=== PATIENT | male | born 1980 | race Caucasian/White ===

== ENCOUNTER 2018-05-30 01:49 | Emergency (ER) | payer BC ==
[~2018-05-30] VITALS: Ht 167.6 cm; Wt 81.6 kg
[2018-05-30 02:04] VITALS: BP_SYST 148
--- NOTE | 2018-05-30 02:10 | NUR ---
Pt placed to ER waiting room in stable condition. Pt c/o generalized abdominal pain with 2 episodes of vomiting since yesterday afternoon. Pt states that it could be because he hasn't used the bathroom today. Reports LBM yesterday and regular. No active vomiting noted at this time. Urine specimen cup provided.
--- NOTE | 2018-05-30 02:42 | NUR ---
Patient to ER bed 6 for evaluation.
--- NOTE | 2018-05-30 02:42 | NUR ---
ER Dr. Torres at bedside examining patient.
[2018-05-30 03:04] LABS: HEMATOCRIT 49.1 % (36-54); HEMOGLOBIN 16.5 g/dL (14.0-18.0); RED BLOOD CELL COUNT(AUTO) 5.59 MIL/uL (4.2-6.2); WHITE BLOOD COUNT (AUTO) 9.4 K/uL (4.8-10.8)
[2018-05-30 03:05] LABS: BASOPHILS % (AUTO) 0.2 % (0.0-2.0); EOSINOPHILS % (AUTO) 0.2 % (0.0-4.0); LYMPHOCYTES # (AUTO) 1.3 K/uL (1.0-5.5); LYMPHOCYTES % (AUTO) 13.6 % (20.5-51.5); MEAN CORPUSCULAR HEMOGLOBIN 30 pg (27-31); MEAN CORPUSCULAR HGB CONC 34 % (32-36); MEAN CORPUSCULAR VOLUME 88 fL (79.0-98.0); MONOCYTES # (AUTO) 0.4 K/uL (0.0-1.0); MONOCYTES % (AUTO) 4.3 % (1.7-9.3); NEUTROPHILS # (AUTO) 7.8 K/uL (1.8-7.7); NEUTROPHILS % (AUTO) 81.7 % (40.0-70.0); PLATELET COUNT (AUTO) 253 K/uL (130-430); RED CELL DISTRIBUTION WIDTH 11.5 % (9.0-15.0)
[2018-05-30 03:11] LABS: BILIRUBIN,URINE NEGATIVE (NEGATIVE); CLARITY/URINE CLEAR (CLEAR); COLOR,URINE YELLOW (YELLOW); GLUCOSE,URINE NEGATIVE (NEGATIVE); KETONES,URINE TRACE (NEGATIVE); PROTEIN URINE TRACE (NEGATIVE)
[2018-05-30 03:12] LABS: BLOOD, URINE NEGATIVE (NEGATIVE); LEUKOCYTE ESTERASE ,URINE NEGATIVE (NEGATIVE); NITRITE, URINE NEGATIVE (NEGATIVE); UROBILINOGEN,URINE 0.2 (0.2-1.0)
[2018-05-30 03:14] LABS: BACTERIA,URINE RARE /HPF (None Seen); MUCUS,URINE None Seen /LPF (None Seen); RBC,URINE 0-3 /HPF (0-3); WBC,URINE 0-3 /HPF (0-3)
--- NOTE | 2018-05-30 03:15 | NUR ---
Pt resting comfortably in bed. No acute distress, will continue to monitor.
[2018-05-30 03:28] LABS: CALCIUM 9.5 mg/dL (8.4-11.0); CREATININE 1.15 mg/dL (0.55-1.30); POTASSIUM 4.1 mmol/L (3.5-5.1)
[2018-05-30 03:41] LABS: ALBUMIN 4.3 g/dL (3.4-4.8); TOTAL BILIRUBIN 0.5 mg/dL (0.0-1.0)
[2018-05-30] MEDS ORDERED: MAG HYDROX/AL HYDROX/SIMETH 30 ML, BELLADONNA ALKALOIDS/PHENOBARB 10 ML, LIDOCAINE VISC... PO ONE ×3 (04:45)
--- NOTE | 2018-05-30 05:43 | NUR ---
PT WENT TO RADIOLOGY, STABLE V/S. NO S/S OF ACUTE DISTRESS
--- NOTE | 2018-05-30 05:48 | NUR ---
PT BACK FROM RADIOLOGY, ON [facility] UP
[2018-05-30 06:59] VITALS: BP_SYST 136
--- NOTE | 2018-05-30 06:59 | NUR ---
Patient given written and verbal discharge instructions and verbalizes understanding. ER MD discussed with patient the results and treatment provided. Patient in stable condition. ID arm band removed. Rx of [place] given. Patient educated on pain management and to follow up with PMD. Pain Scale 0. Opportunity for questions provided and answered. Medication side effect fact sheet provided.
== END 2018-05-30 06:59 | disposition home or self-care (01) ==
LOC: SED 01:49
DX: K80.20 Calculus of gallbladder without cholecystitis without obstruction (principal); K76.0 Fatty (change of) liver, not elsewhere classified; D17.9 Benign lipomatous neoplasm, unspecified
CPT/HCPCS: 36415; 74176; 80053; 81000; 83690; 85025; 99284; J2001

== ENCOUNTER 2019-06-13 09:00 | Emergency (ER) | payer SELFPAY ==
[~2019-06-13] VITALS: Ht 170.2 cm; Wt 81.6 kg
[2019-06-13 09:04] VITALS: BP_SYST 141
--- NOTE | 2019-06-13 09:07 | NUR ---
Patient to ER bed 08 to gown for evaluation. Side rails up.
--- NOTE | 2019-06-13 09:10 | NUR ---
Patient arrived to the ED c/o left arm pain and numbness that lasted 30 seconds this morning. Denied any chest pain, headache, or shortness of breath. Denied fevers, chills, nausea, or vomiting. Patient is alert and oriented x4, respirations even and unlabored, speaking in full sentneces, and ambulating with a steady gait. VSS, pain level 4/10. Informed of approximate wait time. Instructed to notify ED staff for any changes in condition or worsening of symptoms. Patient verbalized understanding.
--- NOTE | 2019-06-13 09:13 | NUR ---
ER Dr. Ventura at bedside examining patient.
--- NOTE | 2019-06-13 09:22 | NUR ---
ECG done at bedside as ordered by Dr. Ventura. Patient tolerated the procedure well. Report given to
--- NOTE | 2019-06-13 09:38 | NUR ---
Patient given written and verbal discharge instructions and verbalizes understanding. ER MD discussed with patient the results and treatment provided. Patient in stable condition. ID arm band removed. No Rx given. Patient educated on pain management and to follow up with PMD. Pain Scale 0/10. Opportunity for questions provided and answered. Medication side effect fact sheet provided.
[2019-06-13 09:41] VITALS: BP_SYST 132
== END 2019-06-13 09:41 | disposition home or self-care (01) ==
LOC: SED 09:00
DX: M62.838 Other muscle spasm (principal)
CPT/HCPCS: 93005; 99283

== ENCOUNTER 2023-08-12 08:03 | Emergency (ER) | payer BC ==
[~2023-08-12] VITALS: Ht 167.6 cm; Wt 79.4 kg
[2023-08-12 08:05] VITALS: BP_SYST 140; PULSE 66; RESP 18; TEMP 97.6; O2SAT 97
[2023-08-12 08:25] LABS: BILIRUBIN,URINE 2+ (NEGATIVE); BLOOD, URINE 3+ (NEGATIVE); CLARITY/URINE SL CLOUDY (CLEAR); COLOR,URINE BROWN (YELLOW); GLUCOSE,URINE NEGATIVE (NEGATIVE); KETONES,URINE 1+ (NEGATIVE); LEUKOCYTE ESTERASE ,URINE NEGATIVE (NEGATIVE); NITRITE, URINE NEGATIVE (NEGATIVE); PH,URINE 5.5 (5.0-8.0); PROTEIN URINE 2+ (NEGATIVE); UROBILINOGEN,URINE 0.2 (0.2-1.0)
[2023-08-12] MEDS: NACL 0.9% 1,000 ML IV ONE ×2 (08:53→10:15)
[2023-08-12] MEDS: KETOROLAC TROMETHAMINE 30 MG VIAL IVP ONE (08:55)
[2023-08-12] MEDS: ONDANSETRON HCL 4 MG/2 ML VIAL IVP ONE (08:56)
[2023-08-12 08:57] LABS: BASOPHILS % (AUTO) 0.2 % (0.0-2.0); HEMATOCRIT 46.9 % (36-54); HEMOGLOBIN 16.4 g/dL (14.0-18.0); LYMPHOCYTES # (AUTO) 0.5 K/uL (1.0-5.5); LYMPHOCYTES % (AUTO) 3.7 % (20.5-51.5); MEAN CORPUSCULAR HEMOGLOBIN 30 pg (27-31); MEAN CORPUSCULAR HGB CONC 35 % (32-36); MEAN CORPUSCULAR VOLUME 87 fL (79.0-98.0); MONOCYTES # (AUTO) 0.4 K/uL (0.0-1.0); MONOCYTES % (AUTO) 2.8 % (1.7-9.3); NEUTROPHILS # (AUTO) 13.7 K/uL (1.8-7.7); NEUTROPHILS % (AUTO) 93.3 % (40.0-70.0); PLATELET COUNT (AUTO) 230 K/uL (130-430); RED CELL DISTRIBUTION WIDTH 12.5 % (9.0-15.0); WHITE BLOOD COUNT (AUTO) 14.7 K/uL (4.8-10.8)
[2023-08-12 09:04] LABS: BACTERIA,URINE None Seen /HPF (None Seen); RBC,URINE 50-80 /HPF (0-3); WBC,URINE 0-3 /HPF (0-3)
[2023-08-12 09:24] LABS: CALCIUM 9.7 mg/dL (8.4-11.0); CREATININE 1.59 mg/dL (0.55-1.30); POTASSIUM 4.4 mmol/L (3.5-5.1)
[2023-08-12 09:29] LABS: ALBUMIN 4.4 g/dL (3.4-4.8); BILIRUBIN,DIRECT 0.2 mg/dL (0.0-0.3); TOTAL BILIRUBIN 1.2 mg/dL (0.0-1.0); TOTAL PROTEIN, SERUM 8.2 g/dL (6.4-8.3)
[2023-08-12] MEDS ORDERED: ONDA-8 TL (10:01)
[2023-08-12] MEDS ORDERED: TAMS-11 PO (10:01)
[2023-08-12] MEDS ORDERED: IBUP-1969 PO (10:01)
[2023-08-12 10:18] VITALS: BP_SYST 119; PULSE 64; RESP 20; TEMP 98; O2SAT 97
== END 2023-08-12 10:50 | disposition home or self-care (01) ==
LOC: SED 08:03
DX: N13.2 Hydronephrosis with renal and ureteral calculous obstruction (principal); N28.9 Disorder of kidney and ureter, unspecified
CPT/HCPCS: 99285; 74176; 96374; 96361; 96375; 80076; 80048; 81000; 81001; 83690; 85025; 36415; 81015; J1885; J2405